=== PATIENT | female | born 1945 | race Caucasian/White ===

== ENCOUNTER 2016-07-24 08:46 | Emergency (ER) | payer OTHER ==
--- NOTE | ~2016-07-24 | CR126 ---
[facility]. [facility] A Service of [facility] & [facility] RADIOLOGY TEXT RESULTS PATIENT: MELIZA FONSECA LOCATION: SED : 41 UNIT #: [id number] AGE: [address]: Dayday Archuleta MD SEX: F ORDER DR: [id number] [place] [id number] MR#: [id number] Acc #: [id number] NAME: MELIZA FONSECA. : 1945 SEX: F STUDY DATE/TIME: 07/24/2016 0911 UNIT: SED ROOM: STUDY DESCRIPTION: CR Foot Complete Min 3 View Lt Attending Physician: Dayday Archuleta M.D. Ordering Physician: Dayday Archuleta M.D. Primary Care Physician: Tara Loza M.D. MEDICAL IMAGING REPORT This report is preliminary unless electronic signature is present. EXAM Left foot, 3 views, 07/24/2016, 0911 hours. CLINICAL HISTORY Diffuse foot pain since 07/23/2016. No reported injury. COMPARISON None FINDINGS AP, lateral, and oblique views demonstrate poor image contrast exposure. There is no fracture, dislocation, or periosteal reaction. No foreign body seen. IMPRESSION No fracture, dislocation, or periosteal reaction. No foreign body. Moderate plantar calcaneal spur. Dictated by... Mary Banuelos M.D. THIS IS AN ELECTRONICALLY VERIFIED REPORT Mary Banuelos M.D. at 07/24/2016 12:50 PM MARTHA/estrella TD: 07/24/2016 10:03 JOB #: [id number] MEDICAL IMAGING REPORT Page 1 of 1
[2016-07-24] MEDS ORDERED: INVOKANA100 MG (08:55)
[2016-07-24] MEDS ORDERED: ONGLYZA2.5 MG (08:55)
[2016-07-24] MEDS ORDERED: GLUCOTROL (08:55)
== END 2016-07-24 09:55 | disposition home or self-care (01) ==
LOC: SED 08:46
DX: M72.2 Plantar fascial fibromatosis (principal); E11.9 Type 2 diabetes mellitus without complications
CPT/HCPCS: 73630; 99283